=== PATIENT | female | born 1945 ===

== ENCOUNTER 2020-12-23 16:20 | Inpatient (IN) | payer MEDICARE, BC ==
[~2020-12-23] VITALS: Ht 160 cm; Wt 49.0 kg
[2020-12-23] MEDS ORDERED: ALDACTONE25 MG PO (16:40)
[2020-12-23] MEDS ORDERED: AMIODARONE HCL200 MG PO (16:41)
[2020-12-23] MEDS ORDERED: PLAVIX75 MG PO (16:41)
[2020-12-23] MEDS ORDERED: CALCIUM 600 +1 EAC3 PO (16:41)
[2020-12-23] MEDS ORDERED: COENZYME Q1050 MG PO (16:42)
[2020-12-23] MEDS ORDERED: TOPROL XL25 MG PO (16:42)
[2020-12-23] MEDS ORDERED: PACERONE200 MG PO (16:43)
[2020-12-23] MEDS ORDERED: PRAVASTATIN SOD10 MG PO (16:43)
[2020-12-23] MEDS ORDERED: ZOLOFT100 MG PO (16:43)
[2020-12-23] MEDS ORDERED: ELIQUIS5 MG PO (16:44)
[2020-12-23] MEDS ORDERED: BUPROPION HCL75 MG PO (16:45)
[2020-12-23] MEDS ORDERED: AUGMENTIN 875-11 TAB PO (16:45)
[2020-12-23] MEDS ORDERED: GABAPENTIN100 MG PO (16:47)
[2020-12-23] MEDS ORDERED: ENTRESTO 24 MG1 EACH PO (16:47)
[2020-12-23] MEDS ORDERED: BUSPAR10 MG PO (16:47)
[2020-12-23] MEDS ORDERED: ATIVAN0.5 MG PO ×2 (16:48)
[2020-12-23] MEDS ORDERED: NITROQUICK0.4 MG SL (16:49)
[2020-12-23 17:01] LABS: BASOPHILS 0.6 % (0-2); EOSINOPHILS 1.2 % (0-7); HEMATOCRIT 43.2 % (36.0-48.0); HEMOGLOBIN 14.2 g/dL (12-16); LYMPHOCYTES 12.6 % (15-50); MCH 30.8 pg (26.0-34.0); MCHC 32.8 g/dL (31.0-37.0); MCV 93.8 fL (80.0-100.0); MEAN PLATELET VOLUME 8.6 fL (7.4-10.4); MONOCYTES 5.7 % (2-11); NEUTROPHILS 79.9 % (40-80); PLATELET COUNT 327 10x3/uL (130-400); RBC 4.61 10x6/uL (4.00-5.40); WBC 12.7 10x3/uL (4.8-10.8)
[2020-12-23 17:13] LABS: CALC OSMOLALITY 280 mosm/kg (275-300); CALCIUM 8.7 mg/dL (8.5-10.1); CARBON DIOXIDE 22.6 mmol/L (21.0-32.0); CHLORIDE - SERUM 103 mmol/L (98-107); CREATININE - SERUM 0.8 mg/dL (0.6-1.3); GLUCOSE 164 mg/dL (74-106); POTASSIUM - SERUM 4.1 mmol/L (3.5-5.1); SODIUM 138 mmol/L (136-145); UREA NITROGEN 16 mg/dL (7-18); eGFR NON AFRICAN AMERICAN 74 mL/min (90-120)
[2020-12-23 17:20] LABS: INR 2.2 (0.85-1.17); PROTIME 22.7 SECONDS (11.6-15.0)
[2020-12-23 17:29] LABS: ALBUMIN 2.7 g/dL (3.4-5.0); ALKALINE PHOSPHATASE 95 U/L (30-120); ALT (SGPT) 101 U/L (10-68); BILIRUBIN - TOTAL 1.48 mg/dL (0.2-1.3); CKMB 1.5 U/L (0.0-3.6); CREATINE KINASE 27 UL (21-215); PRO BNP 33641 pg/mL (0-125); PROTEIN - SERUM 6.4 g/dL (6.4-8.2); TROPONIN-I 0.038 ng/mL (0.000-0.060)
[2020-12-23 18:51] LABS: BILIRUBIN NEGATIVE (NEGATIVE); KETONE NEGATIVE (NEGATIVE); NITRITE NEGATIVE (NEGATIVE); UROBILINOGEN NORMAL mg/dL (< 2); WHITE CELLS - URINE OCC HPF (0-4)
[2020-12-23 18:53] LABS: SQUAMOUS EPITHELIAL 0-5 HPF (0-4)
[2020-12-23 18:54] LABS: BACTERIA FEW HPF (NONE SEEN)
[2020-12-23 20:51] VITALS: BP 199/64
[2020-12-23 22:27] VITALS: BP 115/53
--- NOTE | 2020-12-23 23:00 | NUR ---
FAMILY CONTACT INFORMATION DAUGHTER CAROLYN [phone] KELLY [phone] LILI [phone]
[2020-12-24 01:42] VITALS: BP 136/51
[2020-12-24 04:57] VITALS: BP 134/56
[2020-12-24 06:10] LABS: BASOPHILS 0.5 % (0-2); EOSINOPHILS 2.8 % (0-7); HEMATOCRIT 42.2 % (36.0-48.0); HEMOGLOBIN 13.9 g/dL (12-16); LYMPHOCYTES 15.5 % (15-50); MCH 30.9 pg (26.0-34.0); MCHC 32.9 g/dL (31.0-37.0); MEAN PLATELET VOLUME 8.8 fL (7.4-10.4); MONOCYTES 6.9 % (2-11); NEUTROPHILS 74.3 % (40-80); PLATELET COUNT 288 10x3/uL (130-400); RBC 4.49 10x6/uL (4.00-5.40); RDW 14.8 % (11.5-14.5); WBC 12.9 10x3/uL (4.8-10.8)
[2020-12-24 06:30] VITALS: BP 120/65
[2020-12-24 07:01] LABS: ALBUMIN 2.7 g/dL (3.4-5.0); ANION GAP 15.2 mmol/L (8-16); BILIRUBIN - TOTAL 1.15 mg/dL (0.2-1.3); CALCIUM 8.4 mg/dL (8.5-10.1); CARBON DIOXIDE 25.8 mmol/L (21.0-32.0); CREATININE - SERUM 0.8 mg/dL (0.6-1.3); MAGNESIUM - SERUM 2.2 mg/dL (1.8-2.4); PHOSPHOROUS 4.5 mg/dL (2.5-4.9); PROTEIN - SERUM 5.8 g/dL (6.4-8.2)
--- NOTE | 2020-12-24 08:57 | NUR ---
PT ARRIVED TO UNIT ACCOMPANIED BY HOSPITAL STAFF. O2 VIA NC AT [address] PT SETTLED INTO ROOM. DAUGHTER AT BEDSIDE. CLIR. BED IN LOWEST POSITION. SIDE RAILS X2
[2020-12-24 10:52] VITALS: BP 134/56; BMI 19.1
[2020-12-24 13:15] VITALS: Ht 160 cm; Wt 49.0 kg
[2020-12-24 15:16] VITALS: BP 122/46
--- NOTE | 2020-12-24 19:36 | NUR ---
REPORT RECEIVED. PT A&O X4, UP IN BED RECEIVING BREATHING TREATMENT WITH FAMILY AT BEDSIDE. NO S/S OF DISTRESS OBSERVED. RR EVEN & UNLABORED ON 4LNC. IV TO R AC PATENT, SL, SWAB CAPS IN USE. SR 67 ON TELE. BED LOCKED & LOWERED, CL IN REACH. WILL CONT POC.
[2020-12-24 20:50] VITALS: BP 116/93
[2020-12-25 00:23] VITALS: BP 122/53
--- NOTE | 2020-12-25 04:03 | NUR ---
RECEIVED PTS ADVANCED DIRECTIVE; PLACED IN CHART.
[2020-12-25 04:58] VITALS: BP 153/61
[2020-12-25 06:01] LABS: EOSINOPHILS 5.8 % (0-7); HEMATOCRIT 40.8 % (36.0-48.0); HEMOGLOBIN 13.6 g/dL (12-16); LYMPHOCYTES 19.1 % (15-50); MCH 31.1 pg (26.0-34.0); MCHC 33.4 g/dL (31.0-37.0); MEAN PLATELET VOLUME 8.7 fL (7.4-10.4); MONOCYTES 7.2 % (2-11); NEUTROPHILS 66.9 % (40-80); PLATELET COUNT 288 10x3/uL (130-400); RBC 4.39 10x6/uL (4.00-5.40); RDW 14.7 % (11.5-14.5); WBC 11.4 10x3/uL (4.8-10.8)
[2020-12-25 06:16] LABS: ALBUMIN 2.4 g/dL (3.4-5.0); ANION GAP 7.6 mmol/L (8-16); BILIRUBIN - TOTAL 0.54 mg/dL (0.2-1.3); CALCIUM 8.2 mg/dL (8.5-10.1); CARBON DIOXIDE 32.1 mmol/L (21.0-32.0); CREATININE - SERUM 0.9 mg/dL (0.6-1.3); MAGNESIUM - SERUM 2.1 mg/dL (1.8-2.4); PHOSPHOROUS 3.9 mg/dL (2.5-4.9); POTASSIUM - SERUM 3.7 mmol/L (3.5-5.1)
[2020-12-25 08:09] VITALS: BP 128/59
--- NOTE | 2020-12-25 08:39 | NUR ---
PATIENT AAOX4 RESP EVEN AND NON LABORED, NO S/S OF DISTRESS, MEDICATIONS ADMINISTERED EITH NO COMPLICATIONS, NO FURTHER NEEDS, CLIR, BLP
[2020-12-25] MEDS ORDERED: ZITHROMAX 500M500 MG IV (11:26)
[2020-12-25] MEDS ORDERED: ROCEPHIN 1 GM/D51 G1 IV (11:26)
[2020-12-25] MEDS ORDERED: XOPENEX 1.1.25 MG/3 UPD ×2 (11:26→11:27)
[2020-12-25] MEDS ORDERED: PROTONIX40 MG PO (11:28)
[2020-12-25] MEDS ORDERED: MUCINEX600 MG PO (11:28)
[2020-12-25] MEDS ORDERED: FLORAJEN DIGES1 EACH PO (11:28)
[2020-12-25 11:40] VITALS: BP 139/53
--- NOTE | 2020-12-25 11:42 | MORECARE ---
CASE MANAGEMENT DISCHARGE SUMMARY PATIENT: CHANEL MORGAN UNIT: [id number] ADM DATE: 12/23/20 AGE: 75 : 47 SEX: F ROOM/BED: D.5470 AUTHOR: WADE BOSWELL PHYSICIAN: REFERRING PHYSICIAN: RAQUEL STRONG MD DATE OF SERVICE: 12/25/20 Case Management Discharge Planning Summary DCP REVIEW SUMMARY ANTICIPATED D/C DATE: 12/25/2020 EXPECTED LOS : 2 CASE STATUS: DCP Complete INITIAL REVIEW: 12/25/2020 INITIAL REVIEWER: Salud Padilla FINAL DISCHARGE DISPOSITION: : FINAL REVIEWER: FINAL REVIEW DATE: DCP Focus Questions & Answers DCP Evaluation QUESTION: ANSWER Patient and/or caregiver agree upon recommended discharge plan? : Yes Family / Caregiver's ability to cope with chronic illness: : a. Adequate (ability to meet patient's medical needs, ensures patient attends medical appts.) Patient's current cognitive status: : *Oriented to person, place, situation, time and present Patient's ability to cope with chronic illness : d. No chronic illness Patient gives permission to discuss discharge plans with: (name, relationship and number) : Brooke Clements [phone] Does the patient have the ability to pay for or attain post discharge needs / services? : Yes Family / Caregiver's ability to cope with chronic illness: : a. Adequate (ability to meet patient's medical needs, ensures patient attends medical appts.) Physical Status: : Mobility impaired Living Arrangements: : Home with Spouse/Significant Other Partial Dependence, assistance required for: : Ambulation / Mobility Results of this evaluation have been discussed with: : Patient Patient with capacity for self-care or can be cared for in same environment as prior to hospitalization? : Yes Living arrangements comments: : Had admitted from [facility] and Rehab. Prior to that, she was at home with her spouse Baseline cognitive status: : *Oriented to person, place, situation, time and present Planned post hospital services available for patient? : Yes Pharmacy name(s): : [facility] Planned post hospital services covered by insurance plan? : Yes Does Patient have transportation to get home and to follow-up medical appointments when discharged from the hospital? : Yes Would patient like to participate in any Care Coordination programs (if applicable): : Not applicable Equipment in use: : Walker - Rolling Equipment in use: : CPAP Equipment agency name and contact information: : [place] [facility] Mental health screen: : No mental health history Abuse/Neglect: : None Resources / Services in place: : [facility] Contact information for resources in use: : [facility] Re-evaluation QUESTION: ANSWER Would patient like to participate in any Care Coordination programs (if applicable): : Not applicable PATIENT: CHANEL MORGAN ENCOUNTER: [id number] MEDICAL RECORD#: [id number] ADMISSION DATE: 12/23/2020 DISCHARGE DATE: ATTENDING MD: RAQUEL JONES : AGE: 75 MARITAL STATUS: M DC PLAN ID: [id number] FACILITY: [facility] PRINTED ON: 12/25/20 11:42 CT All edits/amendments must be made on the electronic document DICTATION DATE: 12/25/201141 MONITORING MANAGER: TAWANA 12/25/20 114 RPT#: [id number] DC DATE: STATUS: ADM IN [facility] [address] [place] [address] END OF REPORT
--- NOTE | 2020-12-25 11:52 | MORECARE ---
CASE MANAGEMENT DISCHARGE SUMMARY PATIENT: CHANEL MORGAN UNIT: [id number] ADM DATE: 12/23/20 AGE: 75 : 47 SEX: F ROOM/BED: D.2105 AUTHOR: ELBERTDOC PHYSICIAN: REFERRING PHYSICIAN: RAQUEL STRONG MD DATE OF SERVICE: 12/25/20 Case Management Discharge Planning Summary COMMENTS ENTERED DATE: 12/25/20 11:40 CT COMMENT TYPE: Discharge Planning REVIEWER: Salud Padilla met with patient and visitor in the room. States she was at [facility]hab for therapy but would like to go to [facility] inpatient rehab now. SNOW for [facility] inpatient rehab signed. I attempted to call her daughter, Brooke Clements on her face sheet and left a voice message. Patient was living at home with her spouse prior to rehab at [facility] and Rehab. She lives at [address] [place] [address] States she is independent with all ADL's and AIDL's. States uses her rolling walker as needed. I notified Maria Teresa in inpatient rehab of DC order today. They will accept today. DCP REVIEW SUMMARY ANTICIPATED D/C DATE: 12/25/2020 EXPECTED LOS : 2 CASE STATUS: VAP Complete INITIAL REVIEW: 12/25/2020 INITIAL REVIEWER: Salud Padilla FINAL DISCHARGE DISPOSITION: : FINAL REVIEWER: FINAL REVIEW DATE: VAP Focus Questions & Answers VAP Evaluation QUESTION: ANSWER Patient and/or caregiver agree upon recommended discharge plan? : Yes Family / Caregiver's ability to cope with chronic illness: : a. Adequate (ability to meet patient's medical needs, ensures patient attends medical appts.) Patient's current cognitive status: : *Oriented to person, place, situation, time and present Patient's ability to cope with chronic illness : d. No chronic illness Patient gives permission to discuss discharge plans with: (name, relationship and number) : Brooke Clements - [phone] Does the patient have the ability to pay for or attain post discharge needs / services? : Yes Family / Caregiver's ability to cope with chronic illness: : a. Adequate (ability to meet patient's medical needs, ensures patient attends medical appts.) Physical Status: : Mobility impaired Living Arrangements: : Home with Spouse/Significant Other Partial Dependence, assistance required for: : Ambulation / Mobility Results of this evaluation have been discussed with: : Patient Patient with capacity for self-care or can be cared for in same environment as prior to hospitalization? : Yes Living arrangements comments: : Had admitted from [facility] and Rehab. Prior to that, she was at home with her spouse Baseline cognitive status: : *Oriented to person, place, situation, time and present Planned post hospital services available for patient? : Yes Pharmacy name(s): : [facility] P[facility] - [facility] Planned post hospital services covered by insurance plan? : Yes Does Patient have transportation to get home and to follow-up medical appointments when discharged from the hospital? : Yes Would patient like to participate in any Care Coordination programs (if applicable): : Not applicable Equipment in use: : Walker - Rolling Equipment in use: : CPAP Equipment agency name and contact information: : [place] [facility] Mental health screen: : No mental health history Abuse/Neglect: : None Resources / Services in place: : [facility] Contact information for resources in use: : [place] D[facility] Re-evaluation QUESTION: ANSWER Would patient like to participate in any Care Coordination programs (if applicable): : Not applicable PATIENT: CHANEL MORGAN ENCOUNTER: [id number] MEDICAL RECORD#: [id number] ADMISSION DATE: 12/23/2020 DISCHARGE DATE: ATTENDING MD: RAQUEL JONES : AGE: 75 MARITAL STATUS: M DC PLAN ID: [id number] FACILITY: [facility] PRINTED ON: 12/25/20 11:52 CT All edits/amendments must be made on the electronic document DICTATION DATE: 12/25/201151 INTERNET PROGRAMMER: TAWANA 12/25/20 115 RPT#: [id number] DC DATE: STATUS: ADM IN [facility] [address] [place] [address] END OF REPORT
--- NOTE | 2020-12-25 16:05 | MORECARE ---
CASE MANAGEMENT DISCHARGE SUMMARY PATIENT: CHANEL MORGAN UNIT: [id number] ADM DATE: 12/23/20 AGE: 75 : 47 SEX: F ROOM/BED: D.2105 AUTHOR: ELBERTDOC PHYSICIAN: REFERRING PHYSICIAN: RAQUEL STRONG MD DATE OF SERVICE: 12/25/20 Case Management Discharge Planning Summary COMMENTS ENTERED DATE: 12/25/20 11:40 CT COMMENT TYPE: Discharge Planning REVIEWER: Salud Padilla met with patient and visitor in the room. States she was at [facility]hab for therapy but would like to go to [facility] inpatient rehab now. SNOW for [facility] inpatient rehab signed. I attempted to call her daughter, Brooke Clements on her face sheet and left a voice message. Patient was living at home with her spouse prior to rehab at [facility] and Rehab. She lives at [address] [place] [address] States she is independent with all ADL's and AIDL's. States uses her rolling walker as needed. I notified Maria Teresa in inpatient rehab of DC order today. They will accept today. DCP REVIEW SUMMARY ANTICIPATED D/C DATE: 12/25/2020 EXPECTED LOS : 2 CASE STATUS: LAP Complete INITIAL REVIEW: 12/25/2020 INITIAL REVIEWER: Salud Padilla FINAL DISCHARGE DISPOSITION: : FINAL REVIEWER: FINAL REVIEW DATE: LAP Focus Questions & Answers LAP Evaluation QUESTION: ANSWER Patient and/or caregiver agree upon recommended discharge plan? : Yes Family / Caregiver's ability to cope with chronic illness: : a. Adequate (ability to meet patient's medical needs, ensures patient attends medical appts.) Patient's current cognitive status: : *Oriented to person, place, situation, time and present Patient's ability to cope with chronic illness : d. No chronic illness Patient gives permission to discuss discharge plans with: (name, relationship and number) : Brooke Clements - [phone] Does the patient have the ability to pay for or attain post discharge needs / services? : Yes Family / Caregiver's ability to cope with chronic illness: : a. Adequate (ability to meet patient's medical needs, ensures patient attends medical appts.) Physical Status: : Mobility impaired Living Arrangements: : Home with Spouse/Significant Other Partial Dependence, assistance required for: : Ambulation / Mobility Results of this evaluation have been discussed with: : Patient Patient with capacity for self-care or can be cared for in same environment as prior to hospitalization? : Yes Living arrangements comments: : Had admitted from [facility] and Rehab. Prior to that, she was at home with her spouse Baseline cognitive status: : *Oriented to person, place, situation, time and present Planned post hospital services available for patient? : Yes Pharmacy name(s): : [facility] PCP - [facility] Planned post hospital services covered by insurance plan? : Yes Does Patient have transportation to get home and to follow-up medical appointments when discharged from the hospital? : Yes Would patient like to participate in any Care Coordination programs (if applicable): : Not applicable Equipment in use: : Walker - Rolling Equipment in use: : CPAP Equipment agency name and contact information: : [place] [facility] Mental health screen: : No mental health history Abuse/Neglect: : None Resources / Services in place: : Nursing Home Facility Contact information for resources in use: : [place] DCP Re-evaluation QUESTION: ANSWER Would patient like to participate in any Care Coordination programs (if applicable): : Not applicable PATIENT: CHANEL MORGAN ENCOUNTER: [id number] MEDICAL RECORD#: [id number] ADMISSION DATE: 12/23/2020 DISCHARGE DATE: 12/25/2020 ATTENDING MD: RAQUEL JONES : AGE: 75 MARITAL STATUS: M DC PLAN ID: [id number] FACILITY: [facility] PRINTED ON: 12/25/20 16:05 CT All edits/amendments must be made on the electronic document DICTATION DATE: 12/25/201604 CURRENCY COUNTER: TAWANA 12/25/20 160 RPT#: [id number] DC DATE:12/25/20 STATUS: DIS IN [facility] [address] [place] [address] END OF REPORT
--- NOTE | 2020-12-25 16:08 | NUR ---
NOTIFIED JOSY, PATIENT'S NURSE, AND JESSEE SILVEIRA THAT PATIENT HAD BEEN ACCEPTED TO REHAB AND ASIGNED BED 1113A. -RAQUEL NOBLES LPN, CLINICAL LIAISON
--- NOTE | 2020-12-26 08:13 | MORECARE ---
CASE MANAGEMENT DISCHARGE SUMMARY PATIENT: CHANEL MORGAN UNIT: [id number] ADM DATE: 12/23/20 AGE: 75 : 47 SEX: F ROOM/BED: D.2105 AUTHOR: ELBERTDOC PHYSICIAN: REFERRING PHYSICIAN: RAQUEL STRONG MD DATE OF SERVICE: 12/26/20 Case Management Discharge Planning Summary COMMENTS ENTERED DATE: 12/25/20 11:40 CT COMMENT TYPE: Discharge Planning REVIEWER: Salud Padilla met with patient and visitor in the room. States she was at [facility] and Rehab for therapy but would like to go to [facility] inpatient rehab now. SNOW for [facility] inpatient rehab signed. I attempted to call her daughter, Brooke Clements on her face sheet and left a voice message. Patient was living at home with her spouse prior to rehab at [facility] and Rehab. She lives at [address] [place] [address] States she is independent with all ADL's and AIDL's. States uses her rolling walker as needed. I notified Maria Teresa in inpatient rehab of DC order today. They will accept today. DCP REVIEW SUMMARY ANTICIPATED D/C DATE: 12/25/2020 EXPECTED LOS : 2 CASE STATUS: MTP Complete INITIAL REVIEW: 12/25/2020 INITIAL REVIEWER: Salud Padilla FINAL DISCHARGE DISPOSITION: : FINAL REVIEWER: FINAL REVIEW DATE: MTP Focus Questions & Answers MTP Evaluation QUESTION: ANSWER Patient and/or caregiver agree upon recommended discharge plan? : Yes Family / Caregiver's ability to cope with chronic illness: : a. Adequate (ability to meet patient's medical needs, ensures patient attends medical appts.) Patient's current cognitive status: : *Oriented to person, place, situation, time and present Patient's ability to cope with chronic illness : d. No chronic illness Patient gives permission to discuss discharge plans with: (name, relationship and number) : Brooke Clements - [phone] Does the patient have the ability to pay for or attain post discharge needs / services? : Yes Family / Caregiver's ability to cope with chronic illness: : a. Adequate (ability to meet patient's medical needs, ensures patient attends medical appts.) Physical Status: : Mobility impaired Living Arrangements: : Home with Spouse/Significant Other Partial Dependence, assistance required for: : Ambulation / Mobility Results of this evaluation have been discussed with: : Patient Patient with capacity for self-care or can be cared for in same environment as prior to hospitalization? : Yes Living arrangements comments: : Had admitted from [facility] and Rehab. Prior to that, she was at home with her spouse Baseline cognitive status: : *Oriented to person, place, situation, time and present Planned post hospital services available for patient? : Yes Pharmacy name(s): : [facility] PCP - [facility] Planned post hospital services covered by insurance plan? : Yes Does Patient have transportation to get home and to follow-up medical appointments when discharged from the hospital? : Yes Would patient like to participate in any Care Coordination programs (if applicable): : Not applicable Equipment in use: : Walker - Rolling Equipment in use: : CPAP Equipment agency name and contact information: : [place] [facility] CPAP Mental health screen: : No mental health history Abuse/Neglect: : None Resources / Services in place: [facility] Contact information for resources in use: : [place] DCP Re-evaluation QUESTION: ANSWER Would patient like to participate in any Care Coordination programs (if applicable): : Not applicable PATIENT: CHANEL MORGAN ENCOUNTER: [id number] MEDICAL RECORD#: [id number] ADMISSION DATE: 12/23/2020 DISCHARGE DATE: 12/25/2020 ATTENDING MD: RAQUEL JONES : AGE: 75 MARITAL STATUS: M DC PLAN ID: [id number] FACILITY: [facility] PRINTED ON: 12/26/20 8:13 CT All edits/amendments must be made on the electronic document DICTATION DATE: 12/26/20812 HOME CARE ADMINISTRATOR: TAWANA 12/26/20812 RPT#: [id number] DC DATE:12/25/20 STATUS: DIS IN [facility] [address] [place] [address] END OF REPORT
--- NOTE | 2020-12-29 08:49 | EC ---
PATIENT:CHANEL MORGAN DATE OF SERVICE: 12/23/20 SEX: F MEDICAL RECORD: [id number] DATE OF : 49 LOCATION:D.M2 D.210 AGE OF PATIENT: 75 ADMISSION DATE: 12/23/20 REFERRING PHYSICIAN: INTERPRETING PHYSICIAN: JOSE PRESTON MD ECHOCARDIOGRAM REPORT ECHO CHARGES 4 ECHO COMPLETE Date: 12/24/20 CLINICAL DIAGNOSIS: CHF, HTN, DYSPNEA ECHOCARDIOGRAPHIC MEASUREMENTS (adult normal given) AC root (d.<3.7cm) 2.7 cm LV Septum d (<1.2 cm> 0.7 cm Valve Excursion 1.4 cm LV Septum (systole) 0.9 cm Left Atria (s.<4.0cm> 3.3 cm LVPW d(<1.2cm) 0.8 cm RV (d.<2.3cm) 3.0 cm LVPW (sytole) 0.9 cm LV diastole(<5.6CM) 4.3 cm MV E-F(>70mm/sec) cm LV systole 3.9 cm LVOT Diameter 1.6 cm MV exc.(>10mm) 1.0 cm Est.ejection fraction (50-75%) % DOPPLER: LVIT cm/sec A 40 cm/sec E 74 cm/sec LA cm/sec RVSP 17 mmHg LVOT 88 cm/sec AOP1/2T m/s Asc. Ao 165 cm/sec RVOT 40 cm/sec RA cm/sec PA 59 cm/sec AV Gradient Peak 10.8 mmHg AV Mean 5.6 mmHg AV Area 1.2 cm MV Gradient Peak 2.7 mmHg MV Mean 1.1 mmHg MV Area cm COMMENTS: Office Systems Technology Instructor: Cait BLOCK Wrecking Crane Engine Operator: 3 Dr. Montalvo TAPE# Pericardial Effusion Y DATE OF SERVICE: Adequate 2D, color flow imaging, spectral Doppler, and M-Mode. FINDINGS: No LVH. LV internal dimension is normal. Wall motion is normal. EF is greater than equal to 55%. Aortic valve is tricuspid. No evidence of stenosis by Doppler interrogation. Trace to mild AI by color flow imaging. Left atrium is normal. Mitral valve shows no prolapse. Trace MR. Right side is grossly normal. Mild TR. ECHOCARDIOGRAM REPORT [id number] CHANEL MORGAN TRANSINT:[id number] Voice Confirmation ID: [id number] DOCUMENT ID: [id number] JOSE PRESTON MD at 0849 CC: [id number] DICTATION DATE: 12/25/201711 BAD WORK GATHERER: 12/25/20 181 DIS IN 12/25/20 [facility] [address] [place] [address]
--- NOTE | 2020-12-29 12:02 | MORECARE ---
CASE MANAGEMENT DISCHARGE SUMMARY PATIENT: CHANEL MORGAN UNIT: [id number] ADM DATE: 12/23/20 AGE: 75 : 47 SEX: F ROOM/BED: D.2105 AUTHOR: ELBERTDOC PHYSICIAN: REFERRING PHYSICIAN: RAQUEL STRONG MD DATE OF SERVICE: 12/29/20 Case Management Discharge Planning Summary COMMENTS ENTERED DATE: 12/25/20 11:40 CT COMMENT TYPE: Discharge Planning REVIEWER: Salud Padilla met with patient and visitor in the room. States she was at [facility] for therapy but would like to go to [facility] inpatient rehab now. SNOW for [facility] inpatient rehab signed. I attempted to call her daughter, Brooke Clements on her face sheet and left a voice message. Patient was living at home with her spouse prior to rehab at [facility]. She lives at [address] [place] [address] States she is independent with all ADL's and AIDL's. States uses her rolling walker as needed. I notified Maria Teresa in inpatient rehab of DC order today. They will accept today. DCP REVIEW SUMMARY ANTICIPATED D/C DATE: 12/25/2020 EXPECTED LOS : 2 CASE STATUS: DEP Complete INITIAL REVIEW: 12/25/2020 INITIAL REVIEWER: Salud Padilla FINAL DISCHARGE DISPOSITION: : FINAL REVIEWER: FINAL REVIEW DATE: DEP Focus Questions & Answers DEP Evaluation QUESTION: ANSWER Patient and/or caregiver agree upon recommended discharge plan? : Yes Family / Caregiver's ability to cope with chronic illness: : a. Adequate (ability to meet patient's medical needs, ensures patient attends medical appts.) Patient's current cognitive status: : *Oriented to person, place, situation, time and present Patient's ability to cope with chronic illness : d. No chronic illness Patient gives permission to discuss discharge plans with: (name, relationship and number) : Brooke Clements - [phone] Does the patient have the ability to pay for or attain post discharge needs / services? : Yes Family / Caregiver's ability to cope with chronic illness: : a. Adequate (ability to meet patient's medical needs, ensures patient attends medical appts.) Physical Status: : Mobility impaired Living Arrangements: : Home with Spouse/Significant Other Partial Dependence, assistance required for: : Ambulation / Mobility Results of this evaluation have been discussed with: : Patient Patient with capacity for self-care or can be cared for in same environment as prior to hospitalization? : Yes Living arrangements comments: : Had admitted from [facility]. Prior to that, she was at home with her spouse Baseline cognitive status: : *Oriented to person, place, situation, time and present Planned post hospital services available for patient? : Yes Pharmacy name(s): : [facility] [address] PCP - Tate Harrison Planned post hospital services covered by insurance plan? : Yes Does Patient have transportation to get home and to follow-up medical appointments when discharged from the hospital? : Yes Would patient like to participate in any Care Coordination programs (if applicable): : Not applicable Equipment in use: : Walker - Rolling Equipment in use: : CPAP Equipment agency name and contact information: : [facility] Mental health screen: : No mental health history Abuse/Neglect: : None Resources / Services in place: : Retirement Facility Contact information for resources in use: : [facility] D[facility] Re-evaluation QUESTION: ANSWER Would patient like to participate in any Care Coordination programs (if applicable): : Not applicable PATIENT: CHANEL MORGAN ENCOUNTER: [id number] MEDICAL RECORD#: [id number] ADMISSION DATE: 12/23/2020 DISCHARGE DATE: 12/25/2020 ATTENDING MD: RAQUEL JONES : AGE: 75 MARITAL STATUS: M DC PLAN ID: [id number] FACILITY: [facility] PRINTED ON: 12/29/20 12:02 CT All edits/amendments must be made on the electronic document DICTATION DATE: 12/29/201201 SAT MATH TUTOR: TAWANA 12/29/201201 RPT#: [id number] DC DATE:12/25/20 STATUS: DIS IN [facility] [address] [place] [address] END OF REPORT
== END 2020-12-25 16:02 | DRG 291 ==
LOC: D.ER 16:20 → D.M2 20:32 → D.EDHOLD 20:32 → D.M2 12-24 05:46
PROVIDERS: Family Medicine; ADMIT Emergency Medicine; ATTEND Emergency Medicine
DX: I11.0 Hypertensive heart disease with heart failure (principal); J18.9 Pneumonia, unspecified organism; I50.21 Acute systolic (congestive) heart failure; I48.20 Chronic atrial fibrillation, unspecified; J90 Pleural effusion, not elsewhere classified; Z79.01 Long term (current) use of anticoagulants; G47.33 Obstructive sleep apnea (adult) (pediatric); Z95.0 Presence of cardiac pacemaker; I25.10 Atherosclerotic heart disease of native coronary artery without angina pectoris

== ENCOUNTER 2020-12-25 16:34 | Inpatient (IN) | payer MEDICARE, BC ==
[~2020-12-25] VITALS: Ht 160 cm; Wt 53.5 kg
[~2020-12-25 16:34] MED LIST: ALDACTONE25 MG PO; AMIODARONE HCL200 MG PO; ATIVAN0.5 MG PO; AUGMENTIN 875-11 TAB PO; BUPROPION HCL75 MG PO; BUSPAR10 MG PO; CALCIUM 600 +1 EAC3 PO; COENZYME Q1050 MG PO; ELIQUIS5 MG PO; ENTRESTO 24 MG1 EACH PO; FLORAJEN DIGES1 EACH PO; GABAPENTIN100 MG PO; MUCINEX600 MG PO; NITROQUICK0.4 MG SL; PACERONE200 MG PO; PLAVIX75 MG PO; PRAVASTATIN SOD10 MG PO; PROTONIX40 MG PO; ROCEPHIN 1 GM/D51 G1 IV; TOPROL XL25 MG PO; XOPENEX 1.1.25 MG/3 UPD; ZITHROMAX 500M500 MG IV; ZOLOFT100 MG PO
[2020-12-25 17:05] VITALS: BP 135/55; BMI 20.9
--- NOTE | 2020-12-25 19:02 | NUR ---
BEDSIDE REPORT COMPLETE. RECEIVED PT LYING IN BED ON LEFT SIDE EYES CLOSED RESTING. EASILY AROUSED WITH STIMULI. ALERT WITH CONFUSION. NO DISTRESS NOTED. DENIES ANY NEEDS OR PAIN. RIGHT FOREARM SL WITHOUT REDNESS OR SWELLING. DRESSING AND SWAB CAP INTACT. HOME CPAP AT HS. LEFT CHEST GLUED INCISION BEVERLEY S/P PACEMAKER PLACEMENT. TELEMETRY INTACT RUNNING SR. CALL LIGHT AND WATER WITHIN REACH. HAYLEY ALARM ON. CPOC
--- NOTE | 2020-12-25 22:10 | NUR ---
PT ASKED FOR ASSIST TO RESTROOM. PT VOIDED. ASSISTED PT BACK TO BED USING W/C MIN ASSIST. AFTER PT WAS ASSISTED BACK IN BED, PT STARTED TRYING TO CLIMB OOB, PT STATED SHE WANTED TO STAND UP ASSISTED PT STANDING AFTER PT SAT BACK ON BED AND LAID DOWN PT STARTED HITTING THIS NURSE STATING WE ARE ALL TRYING TO KILL HER. CALLED FOR ASSISTANCE PT CONTINUOUSLY TRYING TO CLIMB OOB HITTING AND KICKING, SPITTING IN THIS NURSE FACE. CONRADO WELLER AND STEVEN ADAMS ASSISTED IN ATTEMPTING TO CALM PT, PT CONTINUED TO SCREAM OUT FOR SOMEONE TO CALL POLICE, PT THINKS WE [place] FROM [place] AND [place] ARE OUT TO KILL HER AND HER FAMILY. PT THINKS WE ARE TRYING TO KILL HER AND HAS SPIT OUT HER MEDS IN THIS NURSE FACE. ATTEMPTED TO CONTACT PT FAMILY AND WAS UNSUCCESSFUL. HOUSE SUPERVISIOR WAS CALLED TO COME ASSIST.
--- NOTE | 2020-12-25 22:30 | NUR ---
SPOKE WITH NEGRITA PELLETIER IN REGARDS TO A PRN TO HELP WITH AGITATION, NEGRITA WILL COME ASSESS PT D/T THIS NOT BEING HER NORMAL BEHAVIOR.
--- NOTE | 2020-12-26 00:20 | NUR ---
PT LYING IN BED EYES CLOSED APPEARS TO BE RESTING COMFORTABLY. NO DISTRESS NOTED. CALL LIGHT WITHIN REACH. HAYLEY ALARM ON.
--- NOTE | 2020-12-26 01:15 | NUR ---
PT LYING IN BED AWAKE AND COOPERATIVE. PLACED PT ON HOME CPAP MACHINE. PT DENIES ANY PAIN OR NEEDS. PT IS CONFUSED. ALERT TO SELF ONLY. HAYLEY ALARM ON
--- NOTE | 2020-12-26 02:32 | NUR ---
PT LYING IN BED ON LEFT SIDE EYES CLOSED RESTING. PT HAS REMOVED CPAP. NO DISTRESS NOTED. PT IS IN EYE SIGHT OF NURSE STATION. CALL LIGHT WITHIN REACH. HAYLEY ALARM ON
--- NOTE | 2020-12-26 05:51 | NUR ---
PT LYING IN BED ON RIGHT SIDE EYES CLOSED RESTING. EASILY AROUSED WITH STIMULI. PLEASANT MOOD THIS AM. DENIES ANY NEEDS. PT C/O BEING SORE THIS AM. PT DOES NOT RECALL HER BEHAVIOR LAST NIGHT. FOREARM BRUISING NOTED. CALL LIGHT WITHIN REACH. HAYLEY ALARM ON
[2020-12-26 07:14] LABS: EOSINOPHILS 4.2 % (0-7); HEMATOCRIT 44.9 % (36.0-48.0); HEMOGLOBIN 14.8 g/dL (12-16); LYMPHOCYTES 21.2 % (15-50); MCH 30.8 pg (26.0-34.0); MCV 93.6 fL (80.0-100.0); NEUTROPHILS 66.6 % (40-80); PLATELET COUNT 342 10x3/uL (130-400); RDW 14.6 % (11.5-14.5); WBC 10.8 10x3/uL (4.8-10.8)
[2020-12-26 07:39] LABS: ANION GAP 13.5 mmol/L (8-16); CALCIUM 8.7 mg/dL (8.5-10.1); CARBON DIOXIDE 27.8 mmol/L (21.0-32.0); CREATININE - SERUM 0.8 mg/dL (0.6-1.3); POTASSIUM - SERUM 3.3 mmol/L (3.5-5.1)
[2020-12-26 08:00] VITALS: BP 196/81
--- NOTE | 2020-12-26 08:00 | NUR ---
SHE IS CONFUSED, HER BP IS UP, MORNING MEDS GIVEN FOR BP. SHE STATES " I HAVE HIGH ANXIETY". I ASKED WHAT SHE DID AT HOME FOR IT, BUT SHE DID NOT ANSWER. SHE IS ON TELE SR 66, PER BOOKING OFFICER. THE CALL LIGHT IS WITHIN REACH AND THE BED ALARM IS ON.
[2020-12-26 09:44] VITALS: BP 155/66
[2020-12-26 13:06] VITALS: Ht 160 cm; Wt 53.5 kg
--- NOTE | 2020-12-26 15:25 | NUR ---
PATIENT ADMITTS TO [facility] FROM ACUTE FLOOR. HER PCP IS DR. YUDI LOPEZ. DME AT HOME IS A WALKER AND A C-PAP. PATIENT WAS A [facility] AND [facility] PRIOR TO THIS ADMISSION. SHE STATES WHEN SHE DC THIS TIME SHE IS GOING HOME. WILL CONTINUE TO FOLLOW WITH PATIENT.
--- NOTE | 2020-12-26 19:10 | NUR ---
BEDSIDE REPORT COMPLETE. RECEIVED PT SITTING UP IN W/C VISITING WITH FAMILY. ALERT WITH CONFUSION. DENIES ANY PAIN OR NEEDS. NO DISTRESS NOTED. LEFT CHEST GLUED INCISION WNL. NO DRAINAGE NOTED. RIGHT FOREARM IV PATENT. DRESSING INTACT WITH SMALL AMOUNT OF DRIED BLOOD UNDER DRESSING. NO SIGNS OF IV LEAKING OR INFILTRATION. SWAB CAP INTACT. CONTINUES ON O2/2L VIA NC. CALL LIGHT AND WATER WITHIN REACH. HAYLEY ALARM ON. CPOC
[2020-12-26 19:55] VITALS: BP 126/60
--- NOTE | 2020-12-27 03:04 | NUR ---
pt lying in bed on left side eyes closed resting rr even and unlabored. sammi alarm on
[2020-12-27 07:00] VITALS: BP 148/75
[2020-12-27 19:00] VITALS: BP 139/65
--- NOTE | 2020-12-27 19:25 | NUR ---
SITTING UP IN CHAIR WITH CALL LIGHT WITHIN REACH VISITING WITH DAUGHTER. DENIES NEEDS.
--- NOTE | 2020-12-28 03:19 | NUR ---
RESTING IN BED ON RIGHT SIDE. CALL LIGHT WITHIN REACH. UNLABORED BREATHING NOTED.
[2020-12-28 07:00] VITALS: BP 126/62
[2020-12-28 19:00] VITALS: BP 160/56
--- NOTE | 2020-12-29 02:36 | NUR ---
lying in bed with eyes closed. cpap in use,
[2020-12-29 08:22] VITALS: BP 132/66
--- NOTE | 2020-12-29 08:25 | NUR ---
SHE IS IN THE GYM WORKING WITH THERAPY. SHE TOOK HER MEDICATIONS WITHOUT ANY PROBLEMS. SHE IS WEARING TELE SR 64. DENIES ANY PAIN.
--- NOTE | 2020-12-29 13:37 | NUR ---
Nutrition Follow-up: Diet: Cardiac PO intake: ~28% average x last 6 meals. She was eating lunch at time of my visit. She states that her appetite is currently good and that she liked the roast beef a lot. States that her daughter is bringing her protein drinks. Noted clear liquid protein drinks on bedside table. These drinks contain 90cal and 20gms of protein per 20oz bottle. Patient is also interested in getting vanilla Ensure with meal trays. Last BM: 12/28/20 Wt: 118# (12/26/20) Meds noted: probiotics, abx Labs reviewed Skin: PU to buttocks Recommend: -Continue current diet. Will continue to honor food preferences within diet restrictions. Encouraged PO Intake. -Will add Ensure TID. Ensure has more calories and protein in less volume than clear liquid protein drinks being brought by daughter. -RD will re-assess 01/02/21.
--- NOTE | 2020-12-29 19:10 | NUR ---
BEDSIDE REPORT COMPLETE. RECEIVED PT SITTING UP IN BED VISITING WITH FAMILY. DENIES ANY NEEDS OR PAIN. NO DISTRESS NOTED. RIGHT FOREARM IV PATENT. DRESSING AND SWAB CAP INTACT. LEFT CHEST INCISION GLUED WITHOUT REDNESS OR SWELLING. CALL LIGHT AND WATER WITHIN REACH. HAYLEY ALARM ON. CPOC
[2020-12-29 20:51] VITALS: BP 162/57
--- NOTE | 2020-12-29 22:30 | NUR ---
RIGHT FOREARM IV INFILTRATED. DC IV WITH CATH TIP INTACT. PRESSURE DRESSING APPLIED. STARTED 22G LEFT FOREARM X1 ATTEMPT. FLUSH AND DRAWS WITHOUT DIFFICULTY. IV ANCHORED AND TEGADERM DRESSING APPLIED. DATE, TIME, INITIALED. PT TOLERATED WELL
--- NOTE | 2020-12-30 01:43 | NUR ---
PT LYING IN BED ON LEFT SIDE EYES CLOSED RESTING. CONTINUES ON O2/2L VIA NC. NO DISTRESS NOTED. HAYLEY ALARM ON
[2020-12-30 08:23] VITALS: BP 131/77
--- NOTE | 2020-12-30 19:05 | NUR ---
BEDSIDE REPORT COMPLETE. RECEIVED PT SITTING UP IN BED VISITING WITH FAMILY. ALERT TO SELF AND SITUATION. REORIENTED TO TIME AND PLACE. PT DENIES ANY NEEDS OR PAIN. NO DISTRESS NOTED. CONTINUES ON O2/2L VIA NC. O2 SAT 96%. LEFT CHEST INCISION GLUED WITHOUT REDNESS OR DRAINAGE. LEFT FOREARM IV PATENT. DRESSING AND SWAB CAB INTACT. CALL LIGHT AND WATER WITHIN REACH. HAYLEY ALARM ON. CPOC
[2020-12-30 21:26] LABS: CKMB 2.3 U/L (0.0-3.6); CREATINE KINASE 55 UL (21-215); TROPONIN-I 0.027 ng/mL (0.000-0.060)
[2020-12-30 22:01] VITALS: BP 132/75
--- NOTE | 2020-12-31 14:41 | NUR ---
DUE TO CHANGE IN MEDICAL CONDITION PATIENT DISCHARGED FROM [facility] AND ADMITTED TO ICU ON 12/30/20.
== END 2020-12-30 21:15 | disposition short-term general hospital (02) | DRG 293 ==
LOC: D.REHAB 16:34
PROVIDERS: ADMIT Emergency Medicine; ATTEND Emergency Medicine
DX: I11.0 Hypertensive heart disease with heart failure (principal); I50.20 Unspecified systolic (congestive) heart failure; I48.91 Unspecified atrial fibrillation; R53.81 Other malaise; R26.2 Difficulty in walking, not elsewhere classified; R06.02 Shortness of breath; G47.33 Obstructive sleep apnea (adult) (pediatric); Z95.0 Presence of cardiac pacemaker

== ENCOUNTER 2020-12-30 21:17 | Inpatient (IN) | payer MEDICARE, BC ==
[~2020-12-30] VITALS: Ht 160 cm; Wt 54.5 kg
[2020-12-30 21:00] VITALS: BP 151/124
[2020-12-30 22:00] VITALS: BP 178/81
[2020-12-30 22:48] LABS: APTT 36.2 SECONDS (22.8-39.4); INR 1.54 (0.85-1.17); PROTIME 17.2 SECONDS (11.6-15.0)
[2020-12-30 22:50] LABS: D-DIMER-QUANTITATIVE 3.42 ug/mLFEU (0.20-0.54)
[2020-12-30 23:00] VITALS: BP 169/75
[2020-12-30 23:17] LABS: CALC OSMOLALITY 299 mosm/kg (275-300); CALCIUM 9.2 mg/dL (8.5-10.1); CHLORIDE - SERUM 109 mmol/L (98-107); POTASSIUM - SERUM 4.7 mmol/L (3.5-5.1); SODIUM 145 mmol/L (136-145); UREA NITROGEN 29 mg/dL (7-18); eGFR NON AFRICAN AMERICAN 58 mL/min (90-120)
[2020-12-30 23:22] LABS: GLUCOSE 193 mg/dL (74-106)
[2020-12-30 23:30] LABS: ALBUMIN 3.1 g/dL (3.4-5.0); ALKALINE PHOSPHATASE 209 U/L (30-120); ALT (SGPT) 81 U/L (10-68); BILIRUBIN - TOTAL 0.63 mg/dL (0.2-1.3); CREATINE KINASE 52 UL (21-215); PROTEIN - SERUM 7.3 g/dL (6.4-8.2)
[2020-12-31] VITALS (25 sets, daily range): BP systolic 131–200; BP diastolic 60–115; BMI 21.3
[2020-12-31 05:27] LABS: BASOPHILS 0.6 % (0-2); EOSINOPHILS 0.2 % (0-7); HEMATOCRIT 45.5 % (36.0-48.0); LYMPHOCYTES 7.5 % (15-50); MCH 30.9 pg (26.0-34.0); MCHC 32.9 g/dL (31.0-37.0); MCV 93.9 fL (80.0-100.0); MEAN PLATELET VOLUME 8.7 fL (7.4-10.4); MONOCYTES 3.5 % (2-11); NEUTROPHILS 88.2 % (40-80); RBC 4.85 10x6/uL (4.00-5.40); WBC 17.1 10x3/uL (4.8-10.8)
[2020-12-31 05:42] LABS: PLATELET COUNT 449 10x3/uL (130-400)
[2020-12-31 05:51] LABS: ALBUMIN 3.3 g/dL (3.4-5.0); ALKALINE PHOSPHATASE 181 U/L (30-120); ALT (SGPT) 86 U/L (10-68); BILIRUBIN - TOTAL 0.77 mg/dL (0.2-1.3); CALC OSMOLALITY 293 mosm/kg (275-300); CALCIUM 9.4 mg/dL (8.5-10.1); CARBON DIOXIDE 26.7 mmol/L (21.0-32.0); CHLORIDE - SERUM 106 mmol/L (98-107); CKMB 2.3 U/L (0.0-3.6); CREATINE KINASE 40 UL (21-215); CREATININE - SERUM 0.9 mg/dL (0.6-1.3); GLUCOSE 173 mg/dL (74-106); MAGNESIUM - SERUM 2.4 mg/dL (1.8-2.4); PROTEIN - SERUM 7.6 g/dL (6.4-8.2); SODIUM 143 mmol/L (136-145); TROPONIN-I 0.044 ng/mL (0.000-0.060); UREA NITROGEN 27 mg/dL (7-18); eGFR NON AFRICAN AMERICAN 65 mL/min (90-120)
--- NOTE | 2020-12-31 07:15 | NUR ---
REPORT RECEIVED. PT ASLEEP AT THIS TIME. ON O2 10L HF. SON IN LAW AT BEDSIDE. PT HAS A PUREWICK IN PLACE. IV TO LEFT FOREARM. ASSESSMENT DONE PER FLOWSHEET.
--- NOTE | 2020-12-31 09:15 | NUR ---
DR WOODALL ROUNDED. EXPLAINED BIPAP TO PT AND SON IN LAW. PT AGREED TO WEAR IT.
[2020-12-31 10:38] LABS: CKMB 0.5 U/L (0.0-3.6); CREATINE KINASE 27 UL (21-215); TROPONIN-I 0.025 ng/mL (0.000-0.060)
--- NOTE | 2020-12-31 11:48 | NUR ---
ECHO BEING DONE ON PT.
--- NOTE | 2020-12-31 13:00 | NUR ---
PT TAKEN OFF OF BIPAP FOR 2 HRS.
[2021-01-01] VITALS (9 sets, daily range): BP systolic 111–151; BP diastolic 45–99
[2021-01-01 04:16] LABS: BASOPHILS 0.4 % (0-2); EOSINOPHILS 1.7 % (0-7); HEMATOCRIT 40.1 % (36.0-48.0); HEMOGLOBIN 13.3 g/dL (12-16); LYMPHOCYTES 7.5 % (15-50); MCH 30.8 pg (26.0-34.0); MCHC 33.2 g/dL (31.0-37.0); MCV 92.8 fL (80.0-100.0); MEAN PLATELET VOLUME 8.8 fL (7.4-10.4); MONOCYTES 5.3 % (2-11); NEUTROPHILS 85.1 % (40-80); RBC 4.32 10x6/uL (4.00-5.40); RDW 14.7 % (11.5-14.5); WBC 19.8 10x3/uL (4.8-10.8)
[2021-01-01 04:21] LABS: PLATELET COUNT 343 10x3/uL (130-400)
[2021-01-01 04:35] LABS: ALBUMIN 2.7 g/dL (3.4-5.0); BILIRUBIN - TOTAL 1.26 mg/dL (0.2-1.3); CALCIUM 8.3 mg/dL (8.5-10.1); CARBON DIOXIDE 27.8 mmol/L (21.0-32.0); CREATININE - SERUM 0.9 mg/dL (0.6-1.3); MAGNESIUM - SERUM 1.8 mg/dL (1.8-2.4); PROTEIN - SERUM 6.6 g/dL (6.4-8.2)
[2021-01-01 04:41] LABS: ANION GAP 12.9 mmol/L (8-16); POTASSIUM - SERUM 3.7 mmol/L (3.5-5.1)
--- NOTE | 2021-01-01 12:43 | NUR ---
PATIENT ARRIVED TO ROOM VIA W/C WITH FAMILY AT BEDSIDE , TRANSFERED TO BED WITH ASSIST OF 2 PEOPLE. DENIES ANY NEEDS.
[2021-01-01 17:07] LABS: BILIRUBIN NEGATIVE (NEGATIVE); KETONE NEGATIVE mg/dL (< 1+); NITRITE NEGATIVE (NEGATIVE); PH 5.5 (5.0-8.0); SQUAMOUS EPITHELIAL <1 HPF (0-4); UROBILINOGEN NORMAL mg/dL (< 2); WHITE CELLS - URINE 1 HPF (0-4)
--- NOTE | 2021-01-02 06:26 | NUR ---
I have reviewed this patient and I concur with the Shift Assessment completed by the Licensed Practical Nurse today this shift.
[2021-01-02 06:41] VITALS: BP 148/52
[2021-01-02 07:19] LABS: BASOPHILS 0.7 % (0-2); EOSINOPHILS 3.1 % (0-7); HEMATOCRIT 40.6 % (36.0-48.0); HEMOGLOBIN 13.4 g/dL (12-16); LYMPHOCYTES 14.4 % (15-50); MCH 30.7 pg (26.0-34.0); MCHC 33.1 g/dL (31.0-37.0); MCV 92.8 fL (80.0-100.0); MEAN PLATELET VOLUME 8.9 fL (7.4-10.4); MONOCYTES 6.6 % (2-11); NEUTROPHILS 75.2 % (40-80); PLATELET COUNT 315 10x3/uL (130-400); RBC 4.37 10x6/uL (4.00-5.40); RDW 14.1 % (11.5-14.5)
[2021-01-02 07:36] LABS: WBC 12.5 10x3/uL (4.8-10.8)
[2021-01-02 07:38] LABS: ALBUMIN 2.2 g/dL (3.4-5.0); ANION GAP 9.4 mmol/L (8-16); BILIRUBIN - TOTAL 0.98 mg/dL (0.2-1.3); CALCIUM 8.5 mg/dL (8.5-10.1); CARBON DIOXIDE 29.5 mmol/L (21.0-32.0); CREATININE - SERUM 0.9 mg/dL (0.6-1.3); MAGNESIUM - SERUM 1.9 mg/dL (1.8-2.4); PROTEIN - SERUM 6.1 g/dL (6.4-8.2); VANCOMYCIN - TROUGH 7.3 ug/mL (10.0-20.0)
--- NOTE | 2021-01-02 07:42 | NUR ---
Pharmacy Tech Cris called K+ of 2.9, pt rcvs electrolyte protocol, will medicate.
[2021-01-02 07:43] LABS: POTASSIUM - SERUM 2.9 mmol/L (3.5-5.1)
--- NOTE | 2021-01-02 07:50 | NUR ---
Lying in bed, awake/alert/oriented x 3, T/R self with assist ad jered, cont of B/B with BRPs/BSC with assist ad jered, denies pain/other discomfort at this time, call light/phone/water within reach, call light/phone/water within reach, no s/s of acute distress observed,
[2021-01-02 11:16] VITALS: BP 149/50
--- NOTE | 2021-01-02 12:00 | NUR ---
Family member at bedside requesting update, after verifying their right to information, information provided and questions answered, no other issues addressed at this time.
[2021-01-02 13:36] VITALS: Ht 160 cm; Wt 54.5 kg
[2021-01-02 16:04] VITALS: BP 141/70
[2021-01-02 20:00] VITALS: BP 121/45
[2021-01-03] VITALS: BP 179/75
--- NOTE | 2021-01-03 03:29 | NUR ---
I have reviewed this patient and I concur with the Shift Assessment completed by the Licensed Practical Nurse today this shift.
[2021-01-03 04:00] VITALS: BP 142/52
[2021-01-03 05:59] LABS: BASOPHILS 1.2 % (0-2); EOSINOPHILS 4.4 % (0-7); HEMATOCRIT 40.7 % (36.0-48.0); HEMOGLOBIN 13.5 g/dL (12-16); LYMPHOCYTES 19.3 % (15-50); MCH 30.5 pg (26.0-34.0); MCHC 33.2 g/dL (31.0-37.0); MCV 91.9 fL (80.0-100.0); MEAN PLATELET VOLUME 8.8 fL (7.4-10.4); MONOCYTES 5.9 % (2-11); NEUTROPHILS 69.2 % (40-80); PLATELET COUNT 374 10x3/uL (130-400); RBC 4.42 10x6/uL (4.00-5.40); RDW 14.8 % (11.5-14.5); WBC 10.8 10x3/uL (4.8-10.8)
[2021-01-03 06:28] LABS: ALBUMIN 2.2 g/dL (3.4-5.0); ALKALINE PHOSPHATASE 123 U/L (30-120); ALT (SGPT) 40 U/L (10-68); BILIRUBIN - TOTAL 0.64 mg/dL (0.2-1.3); CARBON DIOXIDE 30.3 mmol/L (21.0-32.0); CREATININE - SERUM 0.7 mg/dL (0.6-1.3); GLUCOSE 134 mg/dL (74-106); MAGNESIUM - SERUM 1.9 mg/dL (1.8-2.4); PROTEIN - SERUM 5.1 g/dL (6.4-8.2); UREA NITROGEN 17 mg/dL (7-18); eGFR NON AFRICAN AMERICAN 87 mL/min (90-120)
[2021-01-03 06:46] LABS: CALC OSMOLALITY 282 mosm/kg (275-300); CHLORIDE - SERUM 104 mmol/L (98-107); POTASSIUM - SERUM 3.3 mmol/L (3.5-5.1); SODIUM 140 mmol/L (136-145)
--- NOTE | 2021-01-03 07:00 | NUR ---
RECEIVED REPORT. ASSUMED CARE OF PATIENT. PATIENT SITTING TO SIDE OF BED WITH ATTENTION TOWARDS CELLPHONE. BEDSIDE SHIFT REPORT COMPLETED, WHITE BOARD UPDATED. NO DISTRESS. DENIES NEEDS AT THIS TIME.
[2021-01-03 07:53] VITALS: BP 121/55
--- NOTE | 2021-01-03 11:28 | NUR ---
PATIENTS DAUGHTER CALLED AND STATES SHE WANTS TO KEEP HER MOM IN OUR REHAB, THEY HAVE DECIDED NOT TO TRANSFER HER TO ANOTHER FACILITY BECAUSE SHE IS FAMILIAR WITH OUR STAFF AND SHE HAS BEEN SWITCHED AROUND SO MUCH IN THE PAST. THANKED PATIENTS DAUGHTER FOR CALLING US AND INFORMING US OF HER DECISION.
[2021-01-03 11:40] VITALS: BP 120/45
--- NOTE | 2021-01-03 12:09 | NUR ---
PATIENTS DAUGHTER CALLED AND LEFT ANOTHER MESSAGE THAT SHE WOULD LIKE TO DISCUSS REHAB AGAIN AND PER THE SON IN LAW IN THE PATIENTS ROOM, THE DAUGHTERS WANT PATIENT TO BE DISCHARGED TO HOME TODAY. RETURNED CALL TO PATIENTS DAUGHTER KELLY AND FAMILY HAS AGREED THAT IF PATEINT IS WELL ENOUGH TO DISCHARGE BACK TO REHAB, THEY WANT TO SKIP REHAB AND BRING THE PATEINT HOME WITH THEM. MESSAGE SENT TO EUGENIE VELASQUEZ OF THE FAMILIES DECISION. WILL CALL KELLY BACK ONCE THIS AIRCRAFT MECHANIC [employer]LECT[employer]ICAL AND RADIO HEARS BACK A DECISION FROM THE PROVIDER.
--- NOTE | 2021-01-03 12:33 | NUR ---
SPOKE WITH PATIENS DAUGHTER KELLY AND INFORMED HER THAT THE PROVIDER WILL NOT DISCHARGE PATEINT TO HOME, ONLY TO REHAB. PATIENT IS TOO WEAK, REQUIRING IV ABX. PROVIDER STATES MAYBE D/C TO HOME NEXT WEEK BUT NOT THIS WEEKEND. CALLED AND INFORMED KELLY OF THE PROVIDER RESPONSE, IF THEY ARE ADAMENT THAT PATIENT COME HOME THEN THEY WOULD HAVE TO TAKE THE PATIENT AMA BECAUSE IT IS NOT A SAFE DISCHARGE FOR OUR PROVIDERS. KELLY STATES OKAY, SHE WILL CALL HER SISTER AND GIVE ME A CALL BACK. KELLY THANKED THIS PAYMENT ANALYST FOR RETURNING THE CALL WITH THEIR DECISION.
--- NOTE | 2021-01-03 13:15 | NUR ---
PATIENTS DAUGHTER KELLY CALLED BACK AND STATES THAT THEY HAVE DECIDED TO TAKE THE PATIENT AMA, THAT THE PATIENT WANTS TO COME HOME, THE PHYSICIANS ARE NOT ON THE SAME PAGE AND THEY ARE GOING TO HONOR THEIR MOMS WISHES.
--- NOTE | 2021-01-03 13:35 | NUR ---
PATIENTS FAMILY HAS NOW CALLED AT HOME AND STATES THAT IS GOING TO CALL AND GIVE ORDERS. 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 DR. SHORT/RON BERKOWITZ STATE THAT THEY WILL NOT GIVE DISCHARGE ORDERS AND THE PATIENT WILL GO AMA IF THEY WANT TO TAKE HER HOME.
--- NOTE | 2021-01-03 14:32 | NUR ---
PATIENTS FAMILY HAS NOW DECIDED THEY WILL ALLOW PATIENT TO GO TO REHAB AND RECIEVE THE CARES THAT SHE NEEDS IN ORDER TO GET A SAFE DISCHARGE HOME.
--- NOTE | 2021-01-03 16:02 | NUR ---
20 GAUGE IV REMOVED FROM RIGHT FA. CATHETER TIP INTACT. NO BLEEDING FROM SITE. 2X2 GAUZE APPLIED AND SECURED WITH BANDAID. 22 GAUGE IV REMOVED LEFT F/A. CATHETER TIP INTACT. NO BLEEDING FROM SITE. 2X2 GAUZE APPLIED AND SECURED WITH BANDAID. DISCHARGE INSTRUCTIONS PROVIDED TO PATIENT AND HER FAMILY. PATIENT AND FAMILY VERBALIZED UNDERSTANDING OF ALL INSTRUCTIONS PROVIDED.
--- NOTE | 2021-01-03 16:14 | NUR ---
PATIENT LEFT UNIT VIA WHEELCHAIR WITH ALL PERSONAL BELONGINGS. JAYASHREE DISCHARGED TO HOME WITH HER SON IN LAW. PATIENT IN NO DISTRESS UPON LEAVING UNIT.
--- NOTE | 2021-01-03 18:41 | MORECARE ---
CASE MANAGEMENT DISCHARGE SUMMARY PATIENT: CHANEL GARCIA UNIT: [id number] ADM DATE: 12/30/20 AGE: 75 : 47 SEX: F ROOM/BED: D.2140 AUTHOR: ELBERT,DOC PHYSICIAN: REFERRING PHYSICIAN: JOSE CERDA MD DATE OF SERVICE: 01/03/21 Case Management Discharge Planning Summary COMMENTS ENTERED DATE: 01/03/21 18:35 CT COMMENT TYPE: Discharge Planning REVIEWER: Delmis Nunez CM met with patient and family (Sherman Garcia, ) to complete DC plan and to evaluate needs. CM discussed SNF and IPR and patient and family have declined these services. The patient states she wishes to return home and feels that this is a safe discharge. She states she does not wear home O2 although she is currently wearing O2 via NC @ 1.5 L/min. Patient lives independently with her spouse, Mansoor Garcia ([phone]). Patient stated that she has no problems paying for medications and she fills her medications at [facility] [address] . Patient stated that her primary care physician is Dr. Harrison who is under [facility] and is a family member. CM discussed HH services and the patient and her family wish to receive these services with [facility]. Patient voiced no other needs at this time and is satisfied with DC plan. Transportation provider at discharge will be with her family member, Sherman. CM notified [facility] of patient's discharge and faxed referral documents to them. CM spoke with Bobby from [facility] and the SOC will be January 06. SNOW delivered, explained, signed by the patient, and placed in chart. CM will continue to follow and will assist as needed with dc plans/needs. ENTERED DATE: 01/03/21 17:20 CT COMMENT TYPE: Discharge Planning REVIEWER: Delmis Nunez 01/03: Update: Family requesting to go home now. Believe she is good enough to not need rehab. Pulm good with pt DC to home. Pulm stopped Abx. Family states that the pt does not wear the oxygen even though she has been documented as to needing oxygen past several days. Does not require oxygen at home. Will get walk test and work to [place] home today. Scribed by Edilberto Ocampo PA-C DCP REVIEW SUMMARY ANTICIPATED D/C DATE: 01/03/2021 EXPECTED LOS : 4 CASE STATUS: DCP Complete INITIAL REVIEW: 12/30/2020 INITIAL REVIEWER: Delmis Nunez FINAL DISCHARGE DISPOSITION: 06 : Discharged/Trans to Home Under Care of Organized Home Health Service in Anticipation of Skilled Care FINAL REVIEWER: FINAL REVIEW DATE: DCP Focus Questions & Answers DCP Screen QUESTION: ANSWER High Risk Factors: : Hosp related to CHF, COPD, DM, End Stage Ds, CVA, CA DCP Evaluation QUESTION: ANSWER Patient's ability to cope with chronic illness : d. No chronic illness Would patient like to participate in any Care Coordination programs (if applicable): : Not applicable Mental health screen: : No mental health history DCP Re-evaluation QUESTION: ANSWER Would patient like to participate in any Care Coordination programs (if applicable): : Not applicable PATIENT: CHANEL GARCIA ENCOUNTER: [id number] MEDICAL RECORD#: [id number] ADMISSION DATE: 12/30/2020 DISCHARGE DATE: 01/03/2021 ATTENDING MD: DILIA: AGE: 75 MARITAL STATUS: M DC PLAN ID: [id number] FACILITY: [facility] PRINTED ON: 01/03/21 18:40 CT All edits/amendments must be made on the electronic document DICTATION DATE: 01/03/211839 SPECIAL TRACKWORK BLACKSMITH: TAWANA 01/03/211839 RPT#: [id number] DC DATE:01/03/21 STATUS: DIS IN [facility] [address] [place] [address] END OF REPORT
--- NOTE | 2021-01-03 18:51 | MORECARE ---
CASE MANAGEMENT DISCHARGE SUMMARY PATIENT: CHANEL GARCIA UNIT: [id number] ADM DATE: 12/30/20 AGE: 75 : 47 SEX: F ROOM/BED: D.2140 AUTHOR: ELBERT,DOC PHYSICIAN: REFERRING PHYSICIAN: JOSE CERDA MD DATE OF SERVICE: 01/03/21 Case Management Discharge Planning Summary COMMENTS ENTERED DATE: 01/03/21 18:35 CT COMMENT TYPE: Discharge Planning REVIEWER: Delmis Nunez CM met with patient and family (Sherman Garcia, ) to complete DC plan and to evaluate needs. CM discussed SNF and IPR and patient and family have declined these services. The patient states she wishes to return home and feels that this is a safe discharge. She states she does not wear home O2 although she is currently wearing O2 via NC @ 1.5 L/min. Patient lives independently with her spouse, Mansoor Garcia ([phone]). Patient stated that she has no problems paying for medications and she fills her medications at [facility] [address] . Patient stated that her primary care physician is Dr. Harrison who is under [facility] and is a family member. CM discussed HH services and the patient and her family wish to receive these services with [facility]. Patient voiced no other needs at this time and is satisfied with DC plan. Transportation provider at discharge will be with her family member, Sherman. CM notified [facility] of patient's discharge and faxed referral documents to them. CM spoke with Bobby from [facility] and the SOC will be January 06. SNOW delivered, explained, signed by the patient, and placed in chart. CM will continue to follow and will assist as needed with dc plans/needs. ENTERED DATE: 01/03/21 17:20 CT COMMENT TYPE: Discharge Planning REVIEWER: Delmis Nunez 01/03: Update: Family requesting to go home now. Believe she is good enough to not need rehab. Pulm good with pt DC to home. Pulm stopped Abx. Family states that the pt does not wear the oxygen even though she has been documented as to needing oxygen past several days. Does not require oxygen at home. Will get walk test and work to [place] home today. Scribed by Edilberto Ocampo PA-C DCP REVIEW SUMMARY ANTICIPATED D/C DATE: 01/03/2021 EXPECTED LOS : 4 CASE STATUS: DCP Complete INITIAL REVIEW: 12/30/2020 INITIAL REVIEWER: Delmis uNnez FINAL DISCHARGE DISPOSITION: 06 : Discharged/Trans to Home Under Care of Organized Home Health Service in Anticipation of Skilled Care FINAL REVIEWER: FINAL REVIEW DATE: DCP Focus Questions & Answers DCP Screen QUESTION: ANSWER High Risk Factors: : Hosp related to CHF, COPD, DM, End Stage Ds, CVA, CA DCP Evaluation QUESTION: ANSWER Patient's ability to cope with chronic illness : a. Adequate (0-3 ED visits in 6 mos., adequate financial resources, attends scheduled appts.) Patient gives permission to discuss discharge plans with: (name, relationship and number) : Sherman Garcia, Patient's current cognitive status: : *Oriented to person, place, situation, time and present Patient's current cognitive status: : Alert Physical Status: : Hearing impaired Physical Status: : Partial care dependence Family / Caregiver's ability to cope with chronic illness: : a. Adequate (ability to meet patient's medical needs, ensures patient attends medical appts.) Functional screen assessment: : Other Partial Dependence, assistance required for: : Bathing Living Arrangements: : Home with Spouse/Significant Other Functional screen comments: : Patient is able to ambulate independently and passed resp walk test without oxygen Baseline cognitive status: : *Oriented to person, place, situation, time and present Baseline cognitive status: : Alert Living arrangements comments: : Lives at home with , Mansoor Garcia Patient with capacity for self-care or can be cared for in same environment as prior to hospitalization? : Yes Medication Management: : Patient states can afford medications Pharmacy name(s): : [facility] [address] Does Patient have transportation to get home and to follow-up medical appointments when discharged from the hospital? : Yes Would patient like to participate in any Care Coordination programs (if applicable): : Not applicable Does the patient have electricity at home? : Yes Does the patient have running water in their house? : Yes Equipment in use: : CPAP Mental health screen: : No mental health history DCP Re-evaluation QUESTION: ANSWER Would patient like to participate in any Care Coordination programs (if applicable): : Not applicable PATIENT: CHANEL GARCIA ENCOUNTER: [id number] MEDICAL RECORD#: [id number] ADMISSION DATE: 12/30/2020 DISCHARGE DATE: 01/03/2021 ATTENDING MD: DILIA: 194- AGE: 75 MARITAL STATUS: M DC PLAN ID: [id number] FACILITY: [facility] PRINTED ON: 01/03/21 18:51 CT All edits/amendments must be made on the electronic document DICTATION DATE: 01/03/211850 C ENGINEER: TAWANA 01/03/211850 RPT#: [id number] DC DATE:01/03/21 STATUS: DIS IN [facility] [address] [place] [address] END OF REPORT
--- NOTE | 2021-01-05 14:17 | MORECARE ---
CASE MANAGEMENT DISCHARGE SUMMARY PATIENT: CHANEL GARCIA UNIT: [id number] ADM DATE: 12/30/20 AGE: 75 : 49 SEX: F ROOM/BED: D.2140 AUTHOR: ELBERT,DOC PHYSICIAN: REFERRING PHYSICIAN: JOSE CERDA MD DATE OF SERVICE: 01/05/21 Case Management Discharge Planning Summary COMMENTS ENTERED DATE: 01/03/21 18:35 CT COMMENT TYPE: Discharge Planning REVIEWER: Delmis Nunez CM met with patient and family (Sherman Garcia, ) to complete DC plan and to evaluate needs. CM discussed SNF and IPR and patient and family have declined these services. The patient states she wishes to return home and feels that this is a safe discharge. She states she does not wear home O2 although she is currently wearing O2 via [place] @ 1.5 L/min. Patient lives independently with her spouse, Mansoor Garcia ([phone]). Patient stated that she has no problems paying for medications and she fills her medications at [facility] [address] Patient stated that her primary care physician is Dr. Harrison who is under [facility] and is a family member. CM discussed HH services and the patient and her family wish to receive these services with [facility]. Patient voiced no other needs at this time and is satisfied with DC plan. Transportation provider at discharge will be with her family member, Sherman. CM notified [facility] of patient's discharge and faxed referral documents to them. CM spoke with Bobby from [facility] and the SOC will be January 06. SNOW delivered, explained, signed by the patient, and placed in chart. CM will continue to follow and will assist as needed with dc plans/needs. ENTERED DATE: 01/03/21 17:20 CT COMMENT TYPE: Discharge Planning REVIEWER: Delmis Nunez 01/03: Update: Family requesting to go home now. Believe she is good enough to not need rehab. Pulm good with pt DC to home. Pulm stopped Abx. Family states that the pt does not wear the oxygen even though she has been documented as to needing oxygen past several days. Does not require oxygen at home. Will get walk test and work to [place] home today. Scribed by Edilberto Ocampo PA-C DCP REVIEW SUMMARY ANTICIPATED D/C DATE: 01/03/2021 EXPECTED LOS : 4 CASE STATUS: DCP Complete INITIAL REVIEW: 12/30/2020 INITIAL REVIEWER: Delmis Nunez FINAL DISCHARGE DISPOSITION: 06 : Discharged/Trans to Home Under Care of Organized Home Health Service in Anticipation of Skilled Care FINAL REVIEWER: FINAL REVIEW DATE: DCP Focus Questions & Answers DCP Screen QUESTION: ANSWER High Risk Factors: : Hosp related to CHF, COPD, DM, End Stage Ds, CVA, CA DCP Evaluation QUESTION: ANSWER Patient's ability to cope with chronic illness : a. Adequate (0-3 ED visits in 6 mos., adequate financial resources, attends scheduled appts.) Patient gives permission to discuss discharge plans with: (name, relationship and number) : Sherman Garcia, Patient's current cognitive status: : *Oriented to person, place, situation, time and present Patient's current cognitive status: : Alert Physical Status: : Hearing impaired Physical Status: : Partial care dependence Family / Caregiver's ability to cope with chronic illness: : a. Adequate (ability to meet patient's medical needs, ensures patient attends medical appts.) Functional screen assessment: : Other Partial Dependence, assistance required for: : Bathing Living Arrangements: : Home with Spouse/Significant Other Functional screen comments: : Patient is able to ambulate independently and passed resp walk test without oxygen Baseline cognitive status: : *Oriented to person, place, situation, time and present Baseline cognitive status: : Alert Living arrangements comments: : Lives at home with , Mansoor Garcia Patient with capacity for self-care or can be cared for in same environment as prior to hospitalization? : Yes Medication Management: : Patient states can afford medications Pharmacy name(s): : [facility] [address] Does Patient have transportation to get home and to follow-up medical appointments when discharged from the hospital? : Yes Would patient like to participate in any Care Coordination programs (if applicable): : Not applicable Does the patient have electricity at home? : Yes Does the patient have running water in their house? : Yes Equipment in use: : CPAP Mental health screen: : No mental health history DCP Re-evaluation QUESTION: ANSWER Would patient like to participate in any Care Coordination programs (if applicable): : Not applicable PATIENT: CHANEL GARCIA ENCOUNTER: [id number] MEDICAL RECORD#: [id number] ADMISSION DATE: 12/30/2020 DISCHARGE DATE: 01/03/2021 ATTENDING MD: DLIIA: 1946- AGE: 75 MARITAL STATUS: M DC PLAN ID: [id number] FACILITY: [facility] PRINTED ON: 01/05/21 14:16 CT All edits/amendments must be made on the electronic document DICTATION DATE: 01/05/21 141 DIRECT SERVICE WORKER: TAWANA 01/05/21 1416 RPT#: [id number] DC DATE:01/03/21 STATUS: DIS IN [facility] [address] [place] [address] END OF REPORT
== END 2021-01-03 16:22 | disposition home health service (06) | DRG 193 ==
LOC: D.ICU 21:17 → D.M2 01-01 12:11
PROVIDERS: ADMIT Family Medicine; ATTEND Family Medicine
PROC: 5A09357 Assistance with Respiratory Ventilation, Less than 24 Consecutive Hours, Continuous Positive Airway Pressure (ICD-10-PCS; principal; 2020-12-30)
DX: J18.9 Pneumonia, unspecified organism (principal); J96.01 Acute respiratory failure with hypoxia; G93.41 Metabolic encephalopathy; I50.23 Acute on chronic systolic (congestive) heart failure; I24.8 Other forms of acute ischemic heart disease; I25.110 Atherosclerotic heart disease of native coronary artery with unstable angina pectoris; I48.91 Unspecified atrial fibrillation; I11.0 Hypertensive heart disease with heart failure; I16.0 Hypertensive urgency; I35.1 Nonrheumatic aortic (valve) insufficiency; F03.90 Unspecified dementia, unspecified severity, without behavioral disturbance, psychotic disturbance, mood disturbance, and anxiety; Z95.0 Presence of cardiac pacemaker; Z86.73 Personal history of transient ischemic attack (TIA), and cerebral infarction without residual deficits